=== PATIENT | female | born 1970 | race Caucasian/White ===

== ENCOUNTER 2020-01-05 19:21 | Emergency (ER) | payer BC ==
[2020-01-05] MEDS ORDERED: 0.9 % SODIUM CHLORIDE 1000ML 1,000 ML IV SCH (19:30)
--- NOTE | 2020-01-05 19:34 | Emergency Department Record ---
History of Present Illness - General Chief complaint: Hypergylcemia Stated complaint: HIGH SUGAR(600) Time Seen by Provider: 01/05/20 19:24 Source: Patient Mode of Arrival: Ambulatory Limitations: No limitations - History of Present Illness Initial comments: 49 yo female presents to ED for evaluation of increased thirst and urination for the past 2 days, reports that she checked her glucose this evening, and that her glucose was >600. Patient reports a history of NIDDM that is usually well controlled (last Hgb A1C 7), denies any recent changes in her medications, and denies fevers, chills, or recent illness. Patient denies any use of prednisone for any recent illnesses. Onset/Timin -: Days(s) Location: Generalized Severity: Moderate Consistency: Constant Improves with: None Worsens with: None Associated Symptoms: Denies other symptoms - [place] Coma Scale Eye Response: (4) Open spontaneously Motor Response: (6) Obeys commands Verbal Response: (5) Oriented [place]igh Total: 15 - Related Data Allergies Allergy/AdvReac Type Severity Reaction Status Date / Time acetaminophen [From Vicodin] Allergy Severe VOMITING Verified 01/05/20 19:32 hydrocodone bitartrate Allergy Severe VOMITING Verified 01/05/20 19:32 [From Vicodin] Penicillins Allergy Severe RASH Verified 01/05/20 19:32 Review of Systems Constitutional: Denies: Chills, Fever, Malaise, Night sweats Eyes: Denies: Eye discharge, Eye pain ENT: Denies: Congestion, Ear pain, Epistaxis Respiratory: Denies: Cough, Dyspnea Cardiovascular: Denies: Chest pain, Dyspnea on exertion Endocrine: Reports: Fatigue, Polydipsia, Polyuria. Denies: Heat or cold intolerance Gastrointestinal: Denies: Abdominal pain, Nausea, Vomiting Genitourinary: Reports: Frequency. Denies: Incontinence, Retention Musculoskeletal: Denies: Arthralgia, Back pain Skin: Denies: Bruising, Change in color Neurological: Denies: Abnormal gait, Confusion, Headache, Numbness, Tingling, Tremors Psychiatric: Denies: Anxiety Hematological/Lymphatic: Denies: Anemia, Blood Clots Physical Exam - General General Appearance: Alert, Oriented x3, Cooperative, Mild distress Limitations: No limitations - Head Head exam: Atraumatic, Normocephalic, Normal inspection Head exam detail: negative: Abrasion, Contusion, Flores's sign, General tenderness, Hematoma, Laceration - Eye Eye exam: Normal appearance. negative: Conjunctival injection, Periorbital swelling, Periorbital tenderness, Scleral icterus - ENT Ear exam: negative: Auricular hematoma, Auricular trauma Nasal Exam: negative: Active bleeding, Discharge, Dried blood, Foreign body Mouth exam: negative: Drooling, Laceration, Muffled voice, Tongue elevation - Neck Neck exam: Normal inspection. negative: Meningismus, Tenderness - Respiratory Respiratory exam: Normal lung sounds bilaterally. negative: Respiratory distress, Rhonchi, Stridor, Wheezes - Cardiovascular Cardiovascular Exam: Regular rate, Normal rhythm, Normal heart sounds - GI/Abdominal GI/Abdominal exam: Soft. negative: Distended, Rebound, Rigid, Tenderness - Rectal Rectal exam: Deferred - exam: Deferred - Extremities Extremities exam: Normal inspection. negative: Pedal edema, Tenderness - Back Back exam: Denies: CVA tenderness (R), CVA tenderness (L) - Neurological Neurological exam: Alert, Normal gait, Oriented X3 - Psychiatric Psychiatric exam: Normal affect, Normal mood - Skin Skin exam: Normal color. negative: Abrasion Type of lesion: negative: abrasion Course - Reevaluation(s) Reevaluation #1: 01/05/20 20:34 Laboratory studies were reviewed and appear grossly unremarkable for an acute process except for the following: Glucose 495 Review of the patient's laboratory studies does not appear c/w DKA Insulin 10 units was ordered to be given IV Will reassess patient's glucose in 60 minutes. Reevaluation #2: 01/05/20 21:31 Repeat Glucose is 102. Patient was counseled to eat a complex carbohydrate prior to going to sleep tonight Patient was also instructed to follow-up with her PCP or cut off saw set up operator in 1-3 days as directed. Patient appears stable for discharge at this time. Medical Decision Making - Lab Data Result diagrams: 01/05/20 19:38 01/05/20 19:38 Disposition Disposition: Discharge Clinical Impression: Hyperglycemia Disposition: Home, Self-Care Condition: (2) Stable Instructions: Diabetic Hyperglycemia (ED) Additional Instructions: Return to ED if your symptoms worsen or if you have any concerns. Continue your current diabetic medications as prescribed. Follow-up with your family doctor or cut off saw set up operator in 1-3 days as directed. Forms: Patient Portal Access Time of Disposition: 21:33 Quality - Quality Measures Quality Measures: N/A - Blood Pressure Screening Does Patient Have Any of the Following: No Blood Pressure Classification: Normal BP Reading Systolic Measurement: 117 Diastolic Measurement: 63 Screening for High Blood Pressure: < Normal BP, F/U Not Required > [G8783]
[2020-01-05 19:51] LABS: ABSOLUTE NEUTROPHIL COUNT 3.73; BASO % 0.4 % (0-6); EOS % 4.7 % (0-6); HEMATOCRIT 38.2 % (35.0-47.0); HEMOGLOBIN 12.4 gm/dl (11.6-16.0); LYMPH % 36.9 % (16-45); MEAN CELL VOLUME 85.1 fl (81-97); MEAN CORPUSCULAR HEMOGLOBIN 27.6 pg (27-33); MEAN CORPUSCULAR HGB CONC 32.5 g/dl (32-36); MEAN PLATELET VOLUME 11.2 fl (7.4-10.4); PLATELET COUNT 221 K/uL (130-400); RED BLOOD COUNT 4.49 M/uL (3.80-5.40); RED CELL DISTRIBUTION WIDTH 13.1 % (11.5-14.5); WHITE BLOOD COUNT W/O DIFF 7.3 K/uL (4.2-12.2)
[2020-01-05 19:56] LABS: URINE APPEARANCE CLEAR; URINE BILIRUBIN NEGATIVE (NEGATIVE); URINE BLOOD NEGATIVE (NEGATIVE); URINE COLOR YELLOW; URINE KETONE NEGATIVE (NEGATIVE); URINE LEUKOCYTE ESTERASE NEGATIVE (NEGATIVE); URINE NITRITE NEGATIVE (NEGATIVE); URINE PROTEIN NEGATIVE (NEGATIVE); URINE UROBILINOGEN 0.2 E.U./dL (0.20 - 1.00)
[2020-01-05 19:59] LABS: ACETONE,SERUM NEGATIVE (NEGATIVE)
[2020-01-05 20:04] LABS: URINE GLUCOSE (UA) >=1000 mg/dL (NEGATIVE)
[2020-01-05 20:07] LABS: BLOOD UREA NITROGEN 14 mg/dL (6-20); CREATININE 0.8 mg/dL (0.5-0.9); EST GLOMERULAR FILTRATION RATE > 60 mL/min
[2020-01-05 20:12] LABS: ALB/GLOB RATIO 1.4 (1.1-1.8); ALBUMIN 4.1 g/dL (4.0-5.0); ALKALINE PHOSPHATASE 83 U/L (35-104); ALT/SGPT 10 U/L (<33); AST/SGOT 12 U/L (10.0-35.0)
[2020-01-05 20:21] LABS: GLUCOSE,RANDOM 495 mg/dL (74-109)
[2020-01-05] MEDS ORDERED: HUMULIN R 100 UNIT/ML VIAL IV ONE (20:21)
== END 2020-01-05 21:51 | disposition home or self-care (01) ==
LOC: ER 19:21
DX: E11.65 Type 2 diabetes mellitus with hyperglycemia (principal); R63.1 Polydipsia; Z79.84 Long term (current) use of oral hypoglycemic drugs
CPT/HCPCS: 36416; 80053; 81003; 82009; 82800; 82948; 85025; 96374; 99284; J7030